=== PATIENT | male | born 1935 | race Caucasian/White ===

== ENCOUNTER → 2017-03-05 | Outpatient (CLI) | payer OTHER ==
[2013-07-17 19:06] VITALS: BP 128/65
[2017-03-05 10:51] LABS: BASOPHILS % 1.4 (0.0-1.5); EOSINOPHILS % 3.9 % (0.0-6.8); MEAN CORPUSCULAR HEMOGLOBIN 30.4 pg (28.0-34.0); MEAN CORPUSCULAR VOLUME 91.7 fl (80.0-100.0); MONOCYTES % 6.7 % (0.0-11.0); NEUTROPHILS # 3.8 # k/uL (1.4-7.7)
--- NOTE | 2017-03-05 11:42 | Diagnostic Imaging Report ---
LINDA GARCIA [facility] [address] [facility] [address] [place] [address]. [id number] Report Submission Date: Mar 05, 2017 11:28:36 AM SOAPSTONER Patient Study Name: LUCERO FELIPE Date: Mar 05, 2017 10:35:26 AM SOAPSTONER Modality Type: CR Gender: M Description: CHEST : 39 Institution: [facility] Physician: LINDA GARCIA Examination: PA and lateral chest. History: Evaluate lung jennings. Comparison exam: None provided Findings: PA lateral chest demonstrate a normal cardiac and mediastinal silhouette. Sternotomy wires. Vascular calcifications aortic arch. Left-sided cardiac pacemaker. Significant blunting and fullness at the right lung base. No blunting of the left costophrenic margin. Scattered parenchymal granuloma. Osseous structures are appropriate for age. Impression: Moderate size right pleural effusion. Electronically signed on Mar 05, 2017 11:28:36 AM SOAPSTONER by: Moises SANDERS
== END ==
LOC: LAB 10:24
PROVIDERS: ATTEND Physician Assistant
DX: R05 Cough (principal)
CPT/HCPCS: 36415; 71020; 85025